=== PATIENT | female | born 1945 | race Caucasian/White ===

== ENCOUNTER 2018-11-14 07:53 | Inpatient (IN) | payer MEDICARE, OTHER ==
[~2018-11-14] VITALS: Ht 154.9 cm; Wt 105.3 kg
[~2018-11-14 07:53] MED LIST: ANIMAL SHAPES1 EAC3 PO
--- NOTE | 2018-11-15 12:34 | EKG ---
[facility] [address] [facility] [place], [place] [address] Signed Normal sinus rhythm Right bundle branch block Abnormal ECG No previous ECGs available Confirmed by ARABELLA BUSH MD ([id number]) on 11/15/2018 12:34:50 PM Electronically Signed By: ARABELLA BUSH MD 11/15/18 1234 PATIENT NAME: CHACORTA JIMENES Electrocardiogram DATE OF : 43 PHYSICIAN: ARABELLA BUSH MD REPORT #: [id number] REPORT IS CONFIDENTIAL AND NOT TO BE RELEASED WITHOUT AUTHORIZATION
[2018-11-17] MEDS ORDERED: LIPITOR40 MG PO (10:48)
[2018-11-17] MEDS ORDERED: METFORMIN HCL500 MG PO (10:49)
[2018-11-17] MEDS ORDERED: ASPIRIN EC81 MG PO (10:49)
[2018-11-17] MEDS ORDERED: FREESTYLE FREE1 EAC1 MISC (10:55)
[2018-11-17] MEDS ORDERED: FREESTYLE LITE1 EAC1 TD (10:55)
[2018-11-17] MEDS ORDERED: ENULOSE10 GM/15 M PO (15:25)
== END 2018-11-17 17:35 | disposition home or self-care (01) | DRG 65 ==
LOC: ED 07:53 → CCU 07:54 → MS 11-15 11:55 → CCU 11-15 11:55 → MS 11-15 11:55
PROVIDERS: ADMIT Internal Medicine
DX: I63.9 Cerebral infarction, unspecified (principal); G81.91 Hemiplegia, unspecified affecting right dominant side; G40.89 Other seizures; R40.2142 Coma scale, eyes open, spontaneous, at arrival to emergency department; R40.2362 Coma scale, best motor response, obeys commands, at arrival to emergency department; R40.2252 Coma scale, best verbal response, oriented, at arrival to emergency department; R29.706 NIHSS score 6; E11.9 Type 2 diabetes mellitus without complications; E78.5 Hyperlipidemia, unspecified; F32.9 Major depressive disorder, single episode, unspecified; R20.1 Hypoesthesia of skin; R20.2 Paresthesia of skin; Z88.5 Allergy status to narcotic agent; Z86.73 Personal history of transient ischemic attack (TIA), and cerebral infarction without residual deficits
CPT/HCPCS: 70450; 70496; 70498; 70553; 80053; 80061; 81001; 83036; 83735; 84484; 85025; 93005; 93010; 96374; 97162; 97166; 99285-25; A9579; J1650; J1815; J2060; J2405; J3475; J7040; J7120; Q9967

== ENCOUNTER 2024-04-27 12:30 | Day surgery (SDC) | payer MEDICARE, OTHER ==
[~2024-04-27] VITALS: Ht 154.9 cm; Wt 82.0 kg
[~2024-04-27 12:30] MED LIST changes: +ASPIRIN EC81 MG PO; +ENULOSE10 GM/15 M PO; +FREESTYLE FREE1 EAC1 MISC; +FREESTYLE LITE1 EAC1 TD; +JARDIANCE25 MG; +LEVOTHYROXINE125 MC1; +LIPITOR40 MG PO; +METFORMIN HCL500 M2; +METFORMIN HCL500 MG PO; +ZESTRIL20 MG
[2024-04-27 13:00] LABS: BASOPHILS 0.8 % (0-2); EOSINOPHILS 2.4 % (0-6); HEMATOCRIT 43.6 % (35.0-50.0); HEMOGLOBIN 14.9 g/dL (12.0-18.0); LYMPHOCYTES 43.4 % (24-44); MCH 31.5 (27-36); MCHC 34.2 g/dl (30-36); MCV 92.1 fl (81-99); MONOCYTES 8.8 % (0-12); NEUTROPHILS 44.6 % (39-80); PLATELET COUNT 322 K/uL (140-440); RBC 4.73 M/ul (4.3-5.7); RDW 13.8 (10.5-15.0)
[2024-04-27 13:09] LABS: ANION GAP 14.7 (7-21); BUN/CREATININE RATIO 13.76 (6.0-28.6); CALCIUM 8.8 mg/dL (8.5-10.1); CREATININE, SERUM 1.38 mg/dL (0.55-1.02); POTASSIUM 3.7 mmol/L (3.5-5.1)
[2024-04-27] MEDS ORDERED: SEVOFLURANE 250 ML BTL INH ONE (14:04)
[2024-04-27] MEDS ORDERED: ondansetron HCL 4 MG/2 ML VIAL ONE (14:22)
[2024-04-27] MEDS ORDERED: fentaNYL citrate 100 MCG/2 ML VIAL ONE (14:22)
[2024-04-27] MEDS ORDERED: DEXAMETHASONE SOD PHOS 4 MG/ML VIAL ONE (14:22)
[2024-04-27] MEDS ORDERED: propofoL 200 MG/20 ML VIAL ONE (14:22)
[2024-04-27] MEDS ORDERED: LIDOCAINE HCL 2% 5 ML SDV ONE (14:22)
[2024-04-27] MEDS ORDERED: SUCCINYLCHOLINE IN 0.9% NACL 200 MG/10 ML SYRINGE ONE (14:22)
--- NOTE | 2024-04-27 14:51 | CONS ---
[facility] [address] [place], [place] [address] Signed DATE OF CONSULTATION: 04/27/2024 CHIEF COMPLAINT: Esophageal foreign body. HISTORY OF PRESENT ILLNESS: Chacorta is an 79-year-old female who was eating a hot dog with some bread around 8 or 9 o'clock this morning. She felt to get stuck she thinks right at the level of the clavicle. She has not been able to swallow her saliva or any water since that time. She finally came to emergency room for evaluation. I have been asked to see her as a local general surgeon on-call. She tells me that she has been through several colonoscopies over the years with Dr. Young. Consequently, she is familiar with endoscopy. Her granddaughter is with her today. PAST MEDICAL HISTORY: Stroke in 2004, hypertension, diabetes, and hypothyroidism. PAST SURGICAL HISTORY: Includes hysterectomy, stomach stapling, but was told by Dr. Young it came apart, episiotomy, vein stripping x3, tonsils, appendectomy, cholecystectomy, and several colonoscopy with Dr. Young. SOCIAL HISTORY: Dr. Leonela Sheppard is her primary care provider. She prefers the [facility]. Franc is her daughter at [phone]. FAMILY HISTORY: None. REVIEW OF SYSTEMS: She had 10 systems reviewed. There was nothing new to add. ALLERGIES: Codeine. MEDICATIONS: 1. Aspirin. 2. Jardiance. 3. Levothyroxine. 4. Metformin. PHYSICAL EXAMINATION: VITAL SIGNS: Her blood pressure is 149/81, heart rate is 107, respiratory rate 17, Electronically Signed By: LISE PICKENS MD 04/27/24 1451 PATIENT NAME: CHACORTA JIMENES CONSULTATION DATE OF : 43 REPORT #: [id number] PHYSICIAN: LISE PICKENS MD PCP: LEONELA SHEPPARD MD REPORT IS CONFIDENTIAL AND NOT TO BE RELEASED WITHOUT AUTHORIZATION [facility] [address] [place], [place] [address] Signed temperature is 97.6. She is 98% on room air. She is 5 feet 1 inch tall at 82 kg with a body mass index of 34. GENERAL: Chacorta is an 79-year-old female who is sitting supine semi-recumbent in her ER bed. Her granddaughter is with her. She is in no acute distress. She can talk just fine. She has a spit bag in her hand. LUNGS: Clear to auscultation bilaterally. HEART: Regular rate and rhythm without murmurs. ABDOMEN: Obese and soft and nontender. LABORATORY DATA: Her white blood cell count 9.9, hemoglobin 14, neutrophils 44, platelets 322. Creatinine 1.38, glucose 160. EKG is pending. RADIOGRAPHIC STUDIES: None. ASSESSMENT AND PLAN: Chacorta is an 79-year-old female who presents with an esophageal foreign body, namely hot dog and maybe some bread. I explained her the nature of an upper endoscopy compared to her previous colonoscopies. She understands the nature of the test. There is risk including, but not limited to gas bloating, crampy abdominal pain, bleeding, perforation requiring surgery, and missed diagnosis. We also reviewed the need for anesthesia provider to help with airway management. She understands these patients almost always go home afterwards. It sounds like her granddaughter would be able to help her in that regard. She has expressed understanding and would like to proceed. MD ARRON Diaz/MODL /[id number] cc: MD Lise Perez MD Electronically Signed By: LISE PICKENS MD 04/27/24 1451 PATIENT NAME: CHACORTA JIMENES CONSULTATION DATE OF : 43 REPORT #: [id number] PHYSICIAN: LISE PICKENS MD PCP: LEONELA SHEPPARD MD REPORT IS CONFIDENTIAL AND NOT TO BE RELEASED WITHOUT AUTHORIZATION [facility] [address] [place] [id number] Signed Copies: LISE PICKENS MD ~ Electronically Signed By: LISE PICKENS MD 04/27/24 1451 PATIENT NAME: CHACORTA JIMENES CONSULTATION DATE OF : 43 REPORT #: [id number] PHYSICIAN: LISE PICKENS MD PCP: LEONELA SHEPPARD MD REPORT IS CONFIDENTIAL AND NOT TO BE RELEASED WITHOUT AUTHORIZATION
--- NOTE | 2024-04-27 14:54 | NUR ---
04/27/24 1354 Liat Bolaños PATIENT WAKES SUDDENLY. SHE DENIES PAIN. SHE IS CONVERSING WITH VICKY, HAYDER AND MYSELF.
[2024-04-27 15:26] VITALS: BP 124/68
--- NOTE | 2024-04-27 18:47 | OR ---
[facility] [address] [place], [place] [address] Signed DATE OF OPERATION: 04/27/2024 SURGEON: Lise Pickens MD PREOPERATIVE DIAGNOSES: 1. Esophageal foreign body. 2. History of gastric stapling in . POSTOPERATIVE DIAGNOSES: 1. Proximal esophageal stricture at 15 cm. 2. Intact gastric sleeve. 3. Esophageal foreign body at 15 cm. PROCEDURE: EGD with removal of esophageal foreign body. ESTIMATED BLOOD LOSS: None. INDICATIONS: Chacorta is an 79-year-old female, who tells me back in the , she went through a gastric stapling. She is quite convinced that it is no longer intact. She was eating hot dog around 8 or 9 o'clock this morning. She had some bread as well. She at about the level of clavicles. She has not been able to swallow her saliva. She is not able to drink any fluids. She came to the emergency room for evaluation. I had been asked to see her as the local general surgeon on-call. I met with Chacorta and her granddaughter and explained the above findings. Chacorta told me she has been through many colonoscopies. Consequently, she is familiar with this process. She understands there is risk including, but not limited to gas bloating, crampy abdominal pain, bleeding, perforation requiring surgery, and missed diagnosis. She also understands the need for general endotracheal tube intubation to protect her airway. She had expressed understanding and wished to proceed. DESCRIPTION OF PROCEDURE: Chacorta was taken into the endoscopy suite and placed in the supine semi-recumbent position. She was placed under general endotracheal tube anesthesia. A bite block was utilized. The adult gastroscope was introduced and very carefully advanced sure enough there was the hot dog in her proximal esophagus. We captured it with our net and brought it out to the oropharynx. The scope was reinserted, went down and at 15 cm we saw the circular stricture and it just caught the scope as it went through. The rest of Electronically Signed By: LISE PICKENS MD 04/27/24 1847 PATIENT NAME: CHACORTA JIMENES OPERATIVE REPORT DATE OF : 43 REPORT #: [id number] PHYSICIAN: LISE PICKENS MD PCP: LEONELA SWENSON MD REPORT IS CONFIDENTIAL AND NOT TO BE RELEASED WITHOUT AUTHORIZATION [facility] [address] [place], [place] [address] Signed the esophagus was fine. We went into what looks like a little bit of a hiatal hernia in the upper part of her stomach, which is somewhat large sleeve. We made it down through the sleeve and out into the antrum. Then, we went down through the opening to the pyloric channel and out into the duodenum. The scope was then withdrawn. The duodenum, pyloric channel and antrum were unremarkable. Upon retroflexion of the scope, it looks like her gastric sleeve remains intact. The scope was withdrawn up into the gastric sleeve and had just enough room to retroflex the scope and view the cardia. She probably has just a small hiatal hernia there. The scope was withdrawn up through the area of the GE junction, which was compliant without stricture. The distal and middle esophagus were unremarkable. In the proximal esophagus at 15 cm, she does have a circular stricture just large enough to let the adult gastroscope pass. After this, the gas was suctioned out and the gastroscope removed. Chacorta tolerated the procedure quite well. RECOMMENDATIONS: I will see Chacorta back my office in 7 to 14 days to review her results. She needs to have a barium swallow followed by balloon dilation of her proximal esophagus. Lise Pickens MD ALB/MODL /[id number] cc: MD Leonela Diaz MD Copies: LISE PICKENS MD ~ Electronically Signed By: LISE PICKENS MD 04/27/24 1847 PATIENT NAME: CHACORTA JIMENES OPERATIVE REPORT DATE OF : 43 REPORT #: [id number] PHYSICIAN: LISE PICKENS MD PCP: LEONELA SWENSON MD REPORT IS CONFIDENTIAL AND NOT TO BE RELEASED WITHOUT AUTHORIZATION
--- NOTE | 2024-04-28 21:11 | EKG ---
[facility] [address] [facility] [place] [address] Signed Normal sinus rhythm with sinus arrhythmia Low voltage QRS Incomplete right bundle branch block Borderline ECG When compared with ECG of 27-FEB-2023 11:31, Nonspecific T wave abnormality has replaced inverted T waves in Anterior leads Confirmed by Eze Amor MD () on 04/28/2024 9:10:56 PM Electronically Signed By: EZE AMOR MD 04/28/242110 PATIENT NAME: CHACORTA JIMENES Electrocardiogram DATE OF : 43 PHYSICIAN: EZE AMOR MD REPORT #: [id number] REPORT IS CONFIDENTIAL AND NOT TO BE RELEASED WITHOUT AUTHORIZATION
== END 2024-04-27 15:32 | disposition home or self-care (01) ==
LOC: ED 12:30 → MS 13:51 → DS 13:51 → MS 13:52 → DS 15:32
PROVIDERS: Emergency Medicine; ATTEND Colon & Rectal Surgery
PROC: 0DC28ZZ Extirpation of Matter from Middle Esophagus, Via Natural or Artificial Opening Endoscopic (ICD-10-PCS; principal; 2024-04-27 14:23)
DX: K22.2 Esophageal obstruction (principal); T18.128A Food in esophagus causing other injury, initial encounter; I10 Essential (primary) hypertension; E11.9 Type 2 diabetes mellitus without complications; E03.9 Hypothyroidism, unspecified; Z88.5 Allergy status to narcotic agent; Z79.84 Long term (current) use of oral hypoglycemic drugs; Z79.899 Other long term (current) drug therapy; Z79.82 Long term (current) use of aspirin
CPT/HCPCS: 00813; 36415; 80048; 85025; 93005; 93010; 99284; J0330; J1100; J2003; J2405; J2704; J3010

== ENCOUNTER 2024-07-02 06:12 | Day surgery (SDC) | payer MEDICARE, OTHER ==
[2024-06-25 09:31] VITALS: BP 122/72
[2024-06-25 10:06] VITALS: BP 122/72
[~2024-07-02] VITALS: Ht 154.9 cm; Wt 88.4 kg
--- NOTE | ~2024-07-02 | OR ---
[facility] [address] [place], [place] [address] Draft DATE OF OPERATION: 07/02/2024 SURGEON: Justino Ty DO PREOPERATIVE DIAGNOSIS: Protracted dysphagia with esophageal stricture. POSTOPERATIVE DIAGNOSES: 1. Protracted dysphagia with proximal and distal esophageal strictures. 2. Esophageal dilation. 3. Esophagitis. PROCEDURES PERFORMED: 1. Esophagogastroduodenoscopy with biopsy of the distal esophagus. 2. Dilation of proximal esophagus and dilation of distal esophagus to 36-Hebrew. ANESTHESIA: IV sedation. ESTIMATED BLOOD LOSS: None. DRAINS: None. COMPLICATIONS: None. DESCRIPTION OF PROCEDURE: The patient was brought to the GI lab and placed in a supine position. After induction of IV sedation through pre-anesthetization of the oropharynx and a mouth block, the Olympus video endoscope was introduced through the block to the proximal esophagus, and a stricture was encountered, but the scope passed easily through the stricture itself. In the distal esophagus, a distal esophageal stricture was noted with gross dilation of the esophagus as well. Scope was then passed into the stomach through the area of the stricture to the GE junction. General x-rays were then carried out. Stomach and body were noted to be unremarkable with no intrinsic or extrinsic masses noted, and her pylorus was grossly unremarkable, though her pylorus was then cannulized. First and second portions of the duodenum were unremarkable. Scope was then brought back into the stomach and a [employer] 18-20 dilation balloon was then placed across the distal PATIENT NAME: CHACORTA JIMENES OPERATIVE REPORT DATE OF : 43 REPORT #: [id number] PHYSICIAN: JUSTINO TY DO PCP: DESHAUN SWENSON MD REPORT IS CONFIDENTIAL AND NOT TO BE RELEASED WITHOUT AUTHORIZATION [address] [address] Draft esophageal stricture. It was dilated sequentially to 8 mm of pressure. This was done in sequence x2 with satisfactory dilation of the distal stricture. Balloon was decompressed and scope was brought back to the proximal stricture. Balloon was cannulated over the half-way point of proximal stricture. It was dilated to 6 mm of pressure x sequentially, and this balloon was decompressed and removed. X-rays revealed that dilated areas were inspected and found to be grossly improved in the proximal aspect and also in the distal aspect. Stomach was decompressed. Scope was withdrawn in its entirety. The patient tolerated the procedure well and went to recovery room in satisfactory condition. Justino Ty DO RS/MODL /[id number] Copies: ~ PATIENT NAME: CHACORTA JIMENES OPERATIVE REPORT DATE OF : 43 REPORT #: [id number] PHYSICIAN: JUSTINO TY DO PCP: DESHAUN SWENSON MD REPORT IS CONFIDENTIAL AND NOT TO BE RELEASED WITHOUT AUTHORIZATION
[~2024-07-02 06:12] MED LIST changes: +LISINOPRIL10 MG PO; +MIDAZOLAM HCL 5 MG/5 ML VIAL IV PRN; +OZEMPIC2 MG/0.75; +fentaNYL citrate 100 MCG/2 ML VIAL IV PRN
[2024-07-02 06:34] VITALS: BP 130/71
[2024-07-02] MEDS ORDERED: IBLOOD GLUCOSE TEST STRIP 1 EA TEST VI PRN (07:00)
[2024-07-02] MEDS ORDERED: LIDOCAINE HCL 1% 5 ML SDV INJ ONE (07:00)
[2024-07-02] MEDS ORDERED: LACTATED RINGER'S 1,000 ML IV SCH (07:00)
[2024-07-02] MEDS ORDERED: LIDOCAINE HCL 2% 5 ML SDV ONE (07:51)
[2024-07-02] MEDS ORDERED: propofoL 200 MG/20 ML VIAL ONE (07:51)
[2024-07-02 08:49] VITALS: BP 160/84
--- NOTE | 2024-07-04 12:55 | PATH ---
[facility] [address] [place], [place] [address] Signed SPECIMEN(S): A DISTAL ESOPHAGEAL BIOPSY SPECIMEN SOURCE: A. DISTAL ESOPHAGEAL BIOPSY CLINICAL HISTORY: Pre-op esophageal disorder/esophagitis, gastritis, proximal esophageal stricture, GE junction stricture FINAL PATHOLOGIC DIAGNOSIS: Distal esophagus, biopsy: - Fragment of benign cardio fundic-type gastric mucosa, no esophageal tissue identified. - Negative for significant inflammation or Sen's metaplasia. AMB MICROSCOPIC EXAMINATION: Histologic sections of all submitted blocks are examined by light microscopy. These findings, together with the gross examination, support the pathologic diagnosis. GROSS DESCRIPTION: The specimen, labeled and designated "Nilam Ackerman, distal esophageal biopsy," is received in formalin and consists of one canseco soft tissue fragment, 0.4 cm. Entirely submitted in (A1). AB (under the direct supervision of a pathologist) The Gross Description was prepared using a voice recognition system. The report was reviewed for accuracy; however, sound-alike word errors, addition and/or deletions may occur. If there is any question about this report, please contact Client Services. ADDITIONAL NOTES: Immunohistochemical and/or in situ hybridization studies if performed in this case included appropriate positive controls that reacted as expected. This test was developed and its performance characteristics determined by [facility]. It has not been cleared or approved by the U.S. Food and Drug Administration. The FDA has determined that such clearance or approval is not necessary. This test is used for clinical purposes. It should not be regarded as investigational or for research. [facility] is certified under the Clinical Laboratory Improvement PATIENT NAME: CHACORTA ACKERMAN PATHOLOGY DATE OF : 43 REPORT #: [id number] PHYSICIAN: GERTRUDIS LEWIS PCP: DESHAUN SWENSON MD REPORT IS CONFIDENTIAL AND NOT TO BE RELEASED WITHOUT AUTHORIZATION [address] [address], [place] [address] Signed Amendments of 1988 (CLIA) as qualified to perform high complexity clinical laboratory testing. PERFORMING LABORATORY: Technical component was performed by [facility], [address] [place] [address] (CLIA# [id number]). Professional interpretation was performed by [facility] [address] [place] [id number] Diagnostician: Claudette Escoto MD Pathologist Electronically Signed 07/04/2024 Copies: ~ PATIENT NAME: CHACORTA ACKERMAN PATHOLOGY DATE OF : 43 REPORT #: [id number] PHYSICIAN: GERTRUDIS LEWIS PCP: DESHAUN SWENSON MD REPORT IS CONFIDENTIAL AND NOT TO BE RELEASED WITHOUT AUTHORIZATION
== END 2024-07-02 08:55 | disposition home or self-care (01) ==
LOC: DS 06:12
PROVIDERS: ATTEND Surgery
PROC: 0D738ZZ Dilation of Lower Esophagus, Via Natural or Artificial Opening Endoscopic (ICD-10-PCS; 2024-07-02)
PROC: 0D718ZZ Dilation of Upper Esophagus, Via Natural or Artificial Opening Endoscopic (ICD-10-PCS; 2024-07-02)
PROC: 0DB38ZX Excision of Lower Esophagus, Via Natural or Artificial Opening Endoscopic, Diagnostic (ICD-10-PCS; principal; 2024-07-02 07:55)
DX: K22.2 Esophageal obstruction (principal); K22.89 Other specified disease of esophagus; K21.00 Gastro-esophageal reflux disease with esophagitis, without bleeding; E11.9 Type 2 diabetes mellitus without complications; E78.00 Pure hypercholesterolemia, unspecified; E03.9 Hypothyroidism, unspecified; Z86.73 Personal history of transient ischemic attack (TIA), and cerebral infarction without residual deficits; Z79.82 Long term (current) use of aspirin; Z79.84 Long term (current) use of oral hypoglycemic drugs; Z79.890 Hormone replacement therapy; Z79.899 Other long term (current) drug therapy; Z88.5 Allergy status to narcotic agent
CPT/HCPCS: 00813; C1726; J2003; J2704